=== PATIENT | female | born 1945 | race Hispanic/Latino ===

== ENCOUNTER → 2017-03-06 | Day surgery (SDC) | payer OTHER ==
[~2017-03-06] VITALS: Ht 157.5 cm; Wt 73.0 kg
[~2017-03-06] MED LIST: BREO ELLIPTA 21 EACH INH; LISINOPRIL10 M1 PO; MYRBETRIQ50 M1 PO; OMEPRAZOLE20 M2 PO; SPIRIVA18 MCG INH; THEOPHYLLINE A300 MG PO; VENTOLIN HFA18 GM INH; VITAMIN B-121000 MC3 PO; VITAMIN B-6100 M1 PO; VITAMIN D2000 UNI1 PO; XARELTO20 M2 PO
--- NOTE | 2017-03-06 10:49 | Operative Report ---
Operative/Inv Procedure Report Surgery Date: 03/06/17 Name of Procedure: urethral sling, cystoscopy Pre-Operative Diagnosis: stress incontinence Post-Operative Diagnosis: same Estimated Blood Loss: less than 50ml Surgeon/Pediatric Clinical Dietician: Stephania Henderson MD Anesthesia: local monitored anesthesi Implants: vaginal mesh Complications: none Condition: stable Operative Indication: stress incontinence Operative/Procedure Note Note: This an operative dictation on patient Pilar Mullins. She had very bothersome stress urinary incontinence and wished to proceed with the urethral sling. She was given the risks benefits and alternatives of the surgery and all questions were answered. She signed the consent. Patient was taken to the operating room placed on the operating table in the supine position. Timeout was performed. IV antibiotics were infused. IV sedation was then begun and the patient was placed in the dorsolithotomy position. She was shaved prior to the prepping. She was prepped and draped in the standard sterile fashion. Miller catheter was placed in the bladder was emptied. The Miller was clamped and placed on the abdomen. Since retractor was placed and 1% lidocaine with epinephrine was infiltrated into the anterior vaginal wall beneath the urethra and into the vaginal fornices area. Incision was made beneath the urethra with a #15 blade. The vaginal flaps are created taking care not to injure the urethra. The dissection was carried to the retropubic space. The Altis sling kit was then opened and the trochars provided were used to place the sling. The left side was placed first and followed by the right side and the sling was seen to be in a nice flat horizontal oriented orientation and a tension-free manner after the Prolene sling stitch was used to tighten it. DeBakey was placed between the urethra and the sling when tightening it. Sling was seen to be in good position. Area was copiously irrigated with bacitracin irrigation. The sling incision was closed using a 3-0 Vicryl running locking third suture. There is no mesh in the vaginal fornices. A cystoscopy was performed. The bladder was globally inspected and there were no abnormalities and the anatomy was within normal limits. There was no mesh in the urethral either. The bladder was emptied. 2 inch vaginal packing with bacitracin ointment was placed in the vaginal vault. The sponge and needle count were correct at the end of the case. The blood loss was approximately 50 mL. Patient tolerated procedure well. She was transferred to the recovery room in stable condition. Findings: No mesh in bladder, urethra or vaginal fornices Discharge Disposition: Same Day Admissions
== END ==
LOC: STS 01:59
DX: N39.3 Stress incontinence (female) (male) (principal); N39.41 Urge incontinence; R35.0 Frequency of micturition; R35.1 Nocturia; R39.14 Feeling of incomplete bladder emptying; Z86.711 Personal history of pulmonary embolism; Z79.01 Long term (current) use of anticoagulants; E11.9 Type 2 diabetes mellitus without complications; I10 Essential (primary) hypertension; J45.909 Unspecified asthma, uncomplicated; Z87.891 Personal history of nicotine dependence
CPT/HCPCS: C1771; J0131; J0744; J2250; J2405; J7060